=== PATIENT | male | born 1960 | race Caucasian/White ===

== ENCOUNTER 2018-07-23 15:26 | Emergency (ER) | payer OTHER ==
[~2018-07-23] VITALS: Ht 167.6 cm; Wt 66.6 kg
[2018-07-23 15:35] VITALS: Ht 167.6 cm; Wt 66.6 kg
[2018-07-23] MEDS ORDERED: SOD CHLORIDE 0.9% 1,000 ML IV STA (16:51)
--- NOTE | 2018-07-23 16:58 | ERD ---
ER Documentation Chief Complaint Chief Complaint dx: UTi @ clinic, given bactrim rocephin today, still have pain & burning HPI This is a 58-year-old man 2 days of dysuria and suprapubic discomfort here for continued pain. Just this morning he was diagnosed with a urinary tract infection and given a shot of Toradol and ceftriaxone 1 g IM and discharged with prescription for Bactrim and ibuprofen, both of which she has not used yet. He states he came here because of continued pain, shortly after Toradol wore off he developed increasing suprapubic discomfort. Patient denies fevers, no hematuria, no back or flank pain, no vomiting. ROS All systems reviewed and are negative except as per history of present illness. Medications Home Meds Active Scripts Cephalexin* (Keflex*) 500 Mg Capsule, 500 MG PO QID for 5 Days, CAP Prov:JEFF NEGRON MD 07/23/18 Ibuprofen* (Motrin*) 600 Mg Tab, 600 MG PO Q8 PRN for PAIN AND/OR INFLAMMATION, #30 TAB Prov:JEFF NEGRON MD 07/23/18 Allergies Allergies: Coded Allergies: No Known Allergy (Unverified , 07/23/18) PMhx/Soc Medical and Surgical Hx: pt denies Medical Hx, pt denies Surgical Hx Hx Alcohol Use: No Hx Substance Use: No Hx Tobacco Use: No Smoking Status: Never smoker FmHx Family History: No diabetes Physical Exam Vitals Vital Signs Date Temp Pulse Resp B/P (MAP) Pulse Ox O2 O2 Flow FiO2 Time Delivery Rate 07/23/18 76 20 138/71 98 Room Air 18:40 (93) 07/23/18 99.2 99 18 125/91 99 15:35 (102) Physical Exam Const: Well-developed well-nourished man, mild discomfort, afebrile Resp: Clear to auscultation bilaterally Cardio: Regular rate and rhythm, no murmurs Abd: Soft, non tender, non distended. Suprapubic distention and tenderness to touch, no masses no rigidity or rebound Skin: No petechiae or rashes Back: No midline or flank tenderness Ext: No cyanosis, or edema Neur: Awake and alert x3, no focal deficits or facial asymmetry, pupils equal round reactive to light, gait normal Psych: Normal Mood and Affect Result Diagram: 07/23/18 1657 07/23/18 1657 Results 24 hrs Laboratory Tests Test 07/23/18 16:57 White Blood Count 10.1 10^3/ul Red Blood Count 4.97 10^6/ul Hemoglobin 15.5 g/dl Hematocrit 44.4 % Mean Corpuscular Volume 89.3 fl Mean Corpuscular Hemoglobin 31.2 pg Mean Corpuscular Hemoglobin Concent 34.9 g/dl Red Cell Distribution Width 12.2 % Platelet Count 297 10^3/UL Mean Platelet Volume 9.7 fl Immature Granulocytes % 0.400 % Neutrophils % 86.5 % Lymphocytes % 6.8 % Monocytes % 5.7 % Eosinophils % 0.1 % Basophils % 0.5 % Nucleated Red Blood Cells % 0.0 /100WBC Immature Granulocytes # 0.040 10^3/ul Neutrophils # 8.8 10^3/ul Lymphocytes # 0.7 10^3/ul Monocytes # 0.6 10^3/ul Eosinophils # 0.0 10^3/ul Basophils # 0.1 10^3/ul Nucleated Red Blood Cells # 0.0 10^3/ul Sodium Level 135 mmol/L Potassium Level 4.5 mmol/L Chloride Level 102 mmol/L Carbon Dioxide Level 23 mmol/L Anion Gap 10 Blood Urea Nitrogen 14 mg/dl Creatinine 0.80 mg/dl Est Glomerular Filtrat Rate mL/min > 60 mL/min Glucose Level 114 mg/dl Calcium Level 9.3 mg/dl Current Medications Medications Dose Sig/Siomara Start Time Status Last (Trade) Ordered Route PRN Stop Time Admin Dose Reason Admin Sodium 1,000 ml @ Q1H STAT 07/23/18 DC 07/23/18 Chloride 1,000 mls/hr IV 16:51 17:23 07/23/18 17:50 Cephalexin 500 mg ONCE ONCE 07/23/18 DC 07/23/18 (Keflex) PO 17:00 17:22 07/23/18 17:01 Ibuprofen 600 mg ONCE ONCE 07/23/18 DC 07/23/18 (Motrin) PO 17:00 17:22 07/23/18 17:01 Oxycodone/ 1 tab ONCE ONCE 07/23/18 DC 07/23/18 Acetaminophen PO 17:00 17:21 (Percocet 07/23/18 17:01 (5/ 325)) Procedures/MDM IV line was established patient was placed on alarm security or surveillance monitor rhythm strip revealed a sinus rhythm at about 80 bpm with upright P and T waves. Patient was afebrile Jaimes catheter was placed in about 1100 cc clear urine output obtained, patient felt immediately better and pain resolved. Suprapubic distention resolved completely and repeat abdominal exam was benign and soft. I administered 1 L normal saline IV, ibuprofen 600 mg p.o., Percocet 1 tablet p.o., and cephalexin 500 mg p.o. x1 CBC and electrolytes are normal Jaimes catheter was removed per patient's request. Differential diagnoses considered, included but not limited to acute coronary syndrome, pulmonary embolism, aortic dissection, abdominal aortic aneurysm, sepsis, stroke, meningitis, encephalitis, pneumonia, appendicitis, cholecystitis, bowel obstruction, pyelonephritis, nephrolithiasis, cystitis, as well as metabolic, hematologic, and electrolyte abnormalities. As well as abscess, cellulitis, fractures, and dislocations. Patient feels much better at this time, and vital signs are normal, symptoms have improved. I did give strict instructions to return to the ED if symptoms continue or worsen, patient will otherwise follow-up with primary care physician. Patient understood instructions and agreed to plan. Disclaimer: Inadvertent spelling and grammatical errors are likely due to EHR/dictation software use and do not reflect on the overall quality of patient care. Also, please note that the electronic time recorded on this note does not necessarily reflect the actual time of the patient encounter. Departure Diagnosis: Primary Impression: Acute UTI Additional Impression: Urinary retention Condition: Good JEFF NEGRON MD July 23, 2018 16:58
[2018-07-23] MEDS ORDERED: CEPHALEXIN 500 MG CAP PO ONE (17:00)
[2018-07-23] MEDS ORDERED: IBUPROFEN 600 MG TAB PO ONE (17:00)
[2018-07-23] MEDS ORDERED: OXYCODONE/ACETAMINOPHEN (5/325) TAB PO ONE (17:00)
[2018-07-23] MEDS ORDERED: IBUP-1542 PO (17:38)
[2018-07-23] MEDS ORDERED: CEPH-443 PO (17:38)
[2018-07-23 18:40] VITALS: BP 138/71; PULSE 76; RESP 20
== END 2018-07-23 18:45 | disposition home or self-care (01) ==
LOC: E/R 15:26
DX: N39.0 Urinary tract infection, site not specified (principal)
CPT/HCPCS: 36415; 51702; 80048; 85025; 87086; 99284; J7030

== ENCOUNTER 2018-07-24 10:29 | Emergency (ER) | payer OTHER ==
[~2018-07-24] VITALS: Wt 66.5 kg
[~2018-07-24 10:29] MED LIST: CEPH-443 PO; IBUP-1542 PO
[2018-07-24 10:36] VITALS: BP 156/92; PULSE 94; RESP 18
--- NOTE | 2018-07-24 13:25 | ERD ---
ER Documentation Chief Complaint Chief Complaint HERE YESTERDAY, THINKS HAS RETENTION AGAIN, ABLE TO URINATE HPI Patient is a 58-year-old male who presents for urinary retention. The patient was seen yesterday and diagnosed with a bladder infection and was given Keflex. He initially had a Jaimes placed yesterday and this was removed prior to him being discharged. However he feels like he is again retaining urine. He denies fevers. ROS All systems reviewed and are negative except as per history of present illness. Medications Home Meds Active Scripts Cephalexin* (Keflex*) 500 Mg Capsule, 500 MG PO QID for 5 Days, CAP Prov:JEFF NEGRON MD 07/23/18 Ibuprofen* (Motrin*) 600 Mg Tab, 600 MG PO Q8 PRN for PAIN AND/OR INFLAMMATION, #30 TAB Prov:JEFF NEGRON MD 07/23/18 Allergies Allergies: Coded Allergies: No Known Allergy (Unverified , 07/23/18) PMhx/Soc Hx Alcohol Use: No Hx Substance Use: No Hx Tobacco Use: No Smoking Status: Never smoker FmHx Family History: No diabetes Physical Exam Vitals Vital Signs Date Temp Pulse Resp B/P (MAP) Pulse Ox O2 O2 Flow FiO2 Time Delivery Rate 07/24/18 99.1 94 18 156/92 99 10:36 (113) Physical Exam Const: No acute distress Head: Atraumatic Eyes: Normal Conjunctiva ENT: Normal External Ears, Nose and Mouth. Neck: Full range of motion. No meningismus. Resp: Clear to auscultation bilaterally Cardio: Regular rate and rhythm, no murmurs Abd: Soft, bladder distention and pain over the bladder Skin: No petechiae or rashes Back: No midline or flank tenderness Ext: No cyanosis, or edema Neur: Awake and alert Psych: Normal Mood and Affect Procedures/MDM Jaimes catheter was placed by nursing. Patient is a 58-year-old male who presents with bladder infection and urinary retention. The patient had a Jaimes catheter placed at the bedside. The patient is currently on antibiotics. He will need to follow-up with urology and I gave him information for Dr. Farah. He can return for any worsening symptoms. He is otherwise well-appearing and I do not believe he requires further work-up or admission in the hospital at this time. Departure Diagnosis: Primary Impression: Retention of urine Condition: Fair Patient Instructions: Urinary Retention, Male Referrals: LAZARA FARAH MD Additional Instructions: Specialist:Usted tiene jasmyn condicin mdica que requiere que debra a un especialista dentro de los prximos 1-2 porter.POR FAVOR,CON LICEA SEGUIMIENTO DE PRIMARIA PHSICIAN refferal. SI USTED NO TIENE UN MDICO GENERAL Y / O USTED NO P UEDE PAGAR steve a un mdico,los siguientes olson RECURSOS sido suministrado a usted. ES LICEA RESPONSABILIDAD PARA SER VISTOS POR EL ESPECIALISTA: MARY MAO MD July 24, 2018 13:25
== END 2018-07-24 12:31 | disposition home or self-care (01) ==
LOC: E/R 10:29
DX: R33.9 Retention of urine, unspecified (principal)

== ENCOUNTER 2018-07-31 12:24 | Emergency (ER) | payer OTHER ==
[~2018-07-31] VITALS: Wt 64.3 kg
--- NOTE | 2018-07-31 13:19 | ERD ---
ER Documentation Chief Complaint Chief Complaint retaining urine: p removal Jaimes yesterday unable to void 'feels full' HPI History of Present Illness: 58-year-old male who denies a past medical history coming in today with complaint of urinary retention. Patient reports he had a Jaimes catheter that was in place for approximately 1 week removed yesterday due to prior episode of urinary retention. Patient reports that he has had episodes of urination in which he had a continuous stream of urine, but this morning he noticed that he had urinary dribbling occurred at approximately 8 AM. Patient reports seeing his PCP on yesterday and was given a referral for urologist. Patient is currently awaiting that urology referral, but is having complications with insurance and having to wait 48 hours for insurance to approve appointment. Patient reports that he has contacted another urologist and has an appointment tomorrow in which he reports he will likely not use his insurance unless it is approved. At home pharmacological/nonpharmacological treatment for symptoms: Denies Denies social concerns; Denies recent foreign travel ROS All systems reviewed and are negative except as per history of present illness. Medications Home Meds Active Scripts Tamsulosin Hcl* (Flomax*) 0.4 Mg Cap.er.24h, 0.4 MG PO HS for enlarged prostate for 30 Days, #30 CAP Prov:EFRAÍN HUNT NP 07/31/18 Cephalexin* (Keflex*) 500 Mg Capsule, 500 MG PO QID for 5 Days, CAP Prov:JEFF NEGRON MD 07/23/18 Ibuprofen* (Motrin*) 600 Mg Tab, 600 MG PO Q8 PRN for PAIN AND/OR INFLAMMATION, #30 TAB Prov:JEFF NEGRON MD 07/23/18 Allergies Allergies: Coded Allergies: No Known Allergy (Unverified , 07/23/18) PMhx/Soc Hx Alcohol Use: No Hx Substance Use: No Hx Tobacco Use: No Smoking Status: Never smoker FmHx Family History: No diabetes, No coronary disease Physical Exam Vitals Vital Signs Date Temp Pulse Resp B/P (MAP) Pulse Ox O2 O2 Flow FiO2 Time Delivery Rate 07/31/18 98.4 77 18 133/86 98 Room Air 16:38 (102) 07/31/18 98.1 83 22 142/86 99 12:44 (104) Physical Exam Const: No acute distress Head: Atraumatic Eyes: Normal Conjunctiva ENT: Normal External Ears, Nose and Mouth. Neck: Full range of motion. No meningismus. Resp: Clear to auscultation bilaterally Cardio: Regular rate and rhythm, no murmurs Abd: Soft, tenderness to suprapubic, mild distention noted. Normal bowel sounds Skin: No petechiae or rashes Back: No midline or flank tenderness Ext: No cyanosis, or edema Neur: Awake and alert Psych: Normal Mood and Affect Result Diagram: 07/31/18 1419 Results 24 hrs Laboratory Tests Test 07/31/18 12:40 07/31/18 14:19 Urine Color YELLOW Urine Clarity CLEAR Urine pH 5.0 Urine Specific [place] 1.016 Urine Ketones TRACE mg/dL Urine Nitrite NEGATIVE mg/dL Urine Bilirubin NEGATIVE mg/dL Urine Urobilinogen NEGATIVE mg/dL Urine Leukocyte Esterase NEGATIVE [place]/ul Urine Hemoglobin NEGATIVE mg/dL Urine Glucose NEGATIVE mg/dL Urine Total Protein NEGATIVE mg/dl Blood Urea Nitrogen 17 mg/dl Creatinine 0.72 mg/dl Current Medications Medications Dose Sig/Siomara Start Time Status Last (Trade) Ordered Route PRN Stop Time Admin Dose Reason Admin Lidocaine 5 ml ONCE ONCE 07/31/18 DC HCl MM 13:30 07/31/18 (Lidocaine 13:31 Urojet) Tamsulosin 0.4 mg ONCE ONCE 07/31/18 DC 07/31/18 HCl PO 16:00 07/31/18 16:11 (Flomax) 16:01 Procedures/MDM ED course includes a thorough examination and history. Medications: --- Imaging: --- Labs: Creatinine, BUN, urinalysis Low suspicion for life-threatening medical emergency. Low suspicion for acute abdominal emergency or genitourinary emergency that requires immediate hospitalization or immediate surgical intervention. Otherwise healthy patient presenting with constellation of symptoms likely representing urine retention possibly secondary to enlarged prostate as characterized by history, physical exam finding, lab findings. BUN and creatinine is within normal limits. Urinalysis without signs of infection. Patient reassessment 1545: Patient hemodynamically stable. 1200 mL of urine output to Jaimes catheter. No respiratory distress, otherwise relatively well appearing and nontoxic. Informed results of previous urine culture as well as urinalysis from today; no signs of infection. Change Macrobid administration to nightly for prophylaxis for infection prevention due to Jaimes catheter instead of twice daily that was given prophylactically for probable urinary tract infection; patient was given this prescription at his last visit to emergency department. Patient's and patient verbalizes understanding of medication dosing as well as discharge instructions as well as plan of care to follow-up with urology tomorrow. Will DC home with Jaimes catheter still in place, leg bag changed. Disposition given. Patient educated on diagnoses, prescriptions, follow-up care, return precautions. Strict return precautions given for worsening condition; questions answered discharge. Disposition for discharge with followup in 2 days with PCP/clinic. Departure Diagnosis: Primary Impression: Retention of urine Condition: Stable EFRAÍN HUNT NP Jul 31, 2018 13:19
[2018-07-31] MEDS ORDERED: LIDOCAINE 2% JEL.PF.APP 5 ML UROJET SYRINGE MM ONE (13:30)
[2018-07-31] MEDS ORDERED: TAMSULOSIN (SR) 0.4 MG CAP PO ONE (16:00)
[2018-07-31] MEDS ORDERED: TAMS-14 PO (16:03)
[2018-07-31 16:38] VITALS: BP 133/86; PULSE 77; RESP 18
== END 2018-07-31 16:42 | disposition home or self-care (01) ==
LOC: FTE 12:24
DX: R33.9 Retention of urine, unspecified (principal)
CPT/HCPCS: 81003; 82565; 84520

== ENCOUNTER 2018-08-03 05:56 | Emergency (ER) | payer OTHER ==
[~2018-08-03] VITALS: Ht 170.2 cm; Wt 65.4 kg
[~2018-08-03 05:56] MED LIST changes: +TAMS-14 PO
[2018-08-03 06:09] VITALS: BP 135/90; PULSE 85; RESP 20; Ht 170.2 cm; Wt 65.4 kg
--- NOTE | 2018-08-03 07:47 | ERD ---
ER Documentation Chief Complaint Chief Complaint urine retention x 2 days, f/c removed 2 days ago HPI 58-year-old male presents to the emergency department complaining of urinary retention. 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 He has had catheters placed 3 times. Most recently, the catheter was just removed a few days ago. At that time he was started on antibiotics and Flomax. He has been taking the antibiotics on the Flomax. He states that he continues to be able to urinate, but does not empty his bladder and now is having increasing suprapubic distention. He reports no fevers or chills. He reports significant discomfort over the bladder area. ROS All systems reviewed and are negative except as per history of present illness. Medications Home Meds Active Scripts Tamsulosin Hcl* (Flomax*) 0.4 Mg Cap.er.24h, 0.4 MG PO HS for enlarged prostate for 30 Days, #30 CAP Prov:EFRAÍN HUNT NP 07/31/18 Cephalexin* (Keflex*) 500 Mg Capsule, 500 MG PO QID for 5 Days, CAP Prov:JEFF NEGRON MD 07/23/18 Ibuprofen* (Motrin*) 600 Mg Tab, 600 MG PO Q8 PRN for PAIN AND/OR INFLAMMATION, #30 TAB Prov:JEFF NEGRON MD 07/23/18 Allergies Allergies: Coded Allergies: No Known Allergy (Unverified , 07/23/18) PMhx/Soc History of Surgery: No Anesthesia Reaction: No Hx Neurological Disorder: No Hx Respiratory Disorders: No Hx Cardiac Disorders: No Hx Psychiatric Problems: No Hx Miscellaneous Medical Probl: Yes (BPH-urine retention) Hx Alcohol Use: No Hx Substance Use: No Hx Tobacco Use: No Smoking Status: Never smoker FmHx Noncontributory for chief complaint Physical Exam Vitals Vital Signs Date Temp Pulse Resp B/P (MAP) Pulse Ox O2 O2 Flow FiO2 Time Delivery Rate 08/03/18 98.0 85 20 135/90 98 06:09 (105) Physical Exam GENERAL: The patient is well developed and appropriate for usual state of health in no apparent distress HEENT: Pupils equal, round, and reactive to light. EOMI. There is no scleral icterus. NECK: C-spine is soft and supple, there is no meningismus. There is no cervical lymphadenopathy. LUNGS: Clear to auscultation bilaterally. There are no rales, wheezes or rhonchi. HEART: Regular rate and rhythm, no murmurs, clicks, rubs or gallops. ABDOMEN: Soft, nontender. There is suprapubic distention. Palpable bladder over the pelvic brim. No CVA tenderness. No rebound or guarding. EXTREMITIES: There is no peripheral cyanosis or edema. No focal swelling or erythema. NEURO: The patient moves all four extremities with 5/5 strength. Cranial nerves II - XII are intact. Normal gait. Alert and oriented SKIN: There is no apparent rash or petechiae. HEME/LYMPHATIC: There is no evidence of excessive bruising or lymphedema. PSYCHIATRIC: The patient does not appear anxious or depressed. Procedures/MDM Patient was taken to a room, seen and examined Jaimes catheter was placed and drained approximately a liter of urine Medical decision makin-year-old male presents with recurrent urinary retention. Patient is already being treated for urinary tract infection and has no evidence of renal insufficiency or other high-risk concerns. Patient has good outpatient follow-up. Patient has no evidence of significant hemorrhage. Patient appears to be clinically well and appropriate for discharge. Departure Diagnosis: Primary Impression: Retention of urine Condition: Stable Patient Instructions: Urinary Retention, Male Referrals: LAZARA FARAH MD Additional Instructions: Keep the catheter in place until you are seen by the specialist. Return for any problems or concerns SAMPSON MAN Aug 03, 2018 07:47
== END 2018-08-03 08:03 | disposition home or self-care (01) ==
LOC: E/R 05:56
DX: R33.9 Retention of urine, unspecified (principal)

== ENCOUNTER 2018-08-24 21:27 | Emergency (ER) | payer OTHER ==
[~2018-08-24] VITALS: Ht 172.7 cm; Wt 65.1 kg
[2018-08-24 21:34] VITALS: Ht 172.7 cm; Wt 65.1 kg
--- NOTE | 2018-08-24 23:29 | ERD ---
ER Documentation Chief Complaint Chief Complaint pt reports unable to urinate since last night HPI Is a 58-year-old male who presents for evaluation of urinary retention. He has a history of BPH, he was seen by his primary care doctor yesterday, and had his Jaimes catheter removed, he had been urinating well initially, however now his urinary retention return, and request Jaimes catheter placement he denies fever, denies nausea or vomiting. He has not had any abdominal pain. ROS All systems reviewed and are negative except as per history of present illness. Medications Home Meds Active Scripts Tamsulosin Hcl* (Flomax*) 0.4 Mg Cap.er.24h, 0.4 MG PO HS for enlarged prostate for 30 Days, #30 CAP Prov:EFRAÍN HUNT NP 07/31/18 Cephalexin* (Keflex*) 500 Mg Capsule, 500 MG PO QID for 5 Days, CAP Prov:JEFF NEGRON MD 07/23/18 Ibuprofen* (Motrin*) 600 Mg Tab, 600 MG PO Q8 PRN for PAIN AND/OR INFLAMMATION, #30 TAB Prov:JEFF NEGRON MD 07/23/18 Allergies Allergies: Coded Allergies: No Known Allergy (Unverified , 07/23/18) PMhx/Soc History of Surgery: No Anesthesia Reaction: No Hx Neurological Disorder: No Hx Respiratory Disorders: No Hx Cardiac Disorders: No Hx Psychiatric Problems: No Hx Miscellaneous Medical Probl: Yes (BPH-urine retention) Hx Alcohol Use: No Hx Substance Use: No Hx Tobacco Use: No FmHx Family History: No diabetes Physical Exam Vitals Vital Signs Date Temp Pulse Resp B/P (MAP) Pulse Ox O2 O2 Flow FiO2 Time Delivery Rate 08/25/18 98.1 75 16 130/85 97 00:10 (100) 08/24/18 98.1 98 16 148/87 97 21:34 (107) Physical Exam Const: Afebrile, nontoxic Head: Atraumatic Eyes: Normal conjunctiva ENT: Normal external ears, nose and mouth. Neck: Resp: Normal respiratory effort Cardio: Abd: Soft, tenderness over the suprapubic area, no rebound or guarding, no McBurney's point tenderness Skin: Back: Ext: Neur: Awake and alert Psych: Normal mood and affect Procedures/MDM 58-year-old male presents for evaluation of urinary retention. Jaimes catheter placed in ED, patient without further symptoms, well-appearing nontoxic. Patient is currently on Keflex, no fever no evidence of infection, states had urinalysis yesterday, declined urinary studies today, at discharge the patient was in no distress. Departure Diagnosis: Primary Impression: Retention of urine Condition: Stable JEFF PENA MD Aug 24, 2018 23:29
[2018-08-25 00:10] VITALS: RESP 16
[2018-08-25 01:31] VITALS: BP 128/89; PULSE 79
== END 2018-08-25 01:30 | disposition home or self-care (01) ==
LOC: E/R 21:27
DX: R33.9 Retention of urine, unspecified (principal)

== ENCOUNTER 2018-09-26 16:32 | Emergency (ER) | payer OTHER ==
[~2018-09-26] VITALS: Ht 172.7 cm; Wt 63.8 kg
[~2018-09-26 16:32] MED LIST changes: +CIPR500T4 PO
[2018-09-26 17:18] VITALS: Ht 172.7 cm; Wt 63.8 kg
--- NOTE | 2018-09-26 20:53 | ERD ---
ER Documentation Chief Complaint Chief Complaint pt c/o urinary retention, rogers was removed this am, c/o lower ab pain HPI 58-year-old male with a history of BPH complaining of urinary retention since early this morning. He was at his urologist office where his catheter that he has had for 1 month was removed. He has not been able to urinate since. He is complaining of severe suprapubic pain but is aching. He has the urge to urinate. No fevers or chills. No nausea or vomiting. ROS All systems reviewed and are negative except as per history of present illness. Medications Home Meds Active Scripts Ciprofloxacin Hcl* (Ciprofloxacin Hcl*) 500 Mg Tablet, 500 MG PO BID for 7 Days, TAB Prov:REAL GARCIA MD 09/26/18 Tamsulosin Hcl* (Flomax*) 0.4 Mg Cap.er.24h, 0.4 MG PO HS for enlarged prostate for 30 Days, #30 CAP Prov:EFRAÍN HUNT NP 07/31/18 Cephalexin* (Keflex*) 500 Mg Capsule, 500 MG PO QID for 5 Days, CAP Prov:JEFF NEGRON MD 07/23/18 Ibuprofen* (Motrin*) 600 Mg Tab, 600 MG PO Q8 PRN for PAIN AND/OR INFLAMMATION, #30 TAB Prov:JEFF NEGRON MD 07/23/18 Allergies Allergies: Coded Allergies: No Known Allergy (Unverified , 07/23/18) PMhx/Soc History of Surgery: No Anesthesia Reaction: No Hx Neurological Disorder: No Hx Respiratory Disorders: No Hx Cardiac Disorders: No Hx Psychiatric Problems: No Hx Miscellaneous Medical Probl: Yes (BPH, urine retention) Hx Alcohol Use: No Hx Substance Use: No Hx Tobacco Use: No Smoking Status: Never smoker FmHx Family History: No diabetes Physical Exam Vitals Vital Signs Date Temp Pulse Resp B/P (MAP) Pulse Ox O2 O2 Flow FiO2 Time Delivery Rate 09/26/18 99.0 87 20 128/87 98 17:18 (101) Physical Exam Const: No acute distress Head: Atraumatic Eyes: Normal Conjunctiva ENT: Normal External Ears, Nose and Mouth. Neck: Full range of motion. No meningismus. Resp: Clear to auscultation bilaterally Cardio: Regular rate and rhythm, no murmurs Abd: Suprapubic distention with tenderness to palpation. No peritoneal signs. Skin: No petechiae or rashes Back: No midline or flank tenderness Ext: No cyanosis, or edema Neur: Awake and alert Psych: Normal Mood and Affect Results 24 hrs Laboratory Tests Test 09/26/18 20:40 Bedside Urine pH (LAB) 5.5 Bedside Urine Protein (LAB) Trace Bedside Urine Glucose (UA) Negative Bedside Urine Ketones (LAB) 1+ Bedside Urine Blood 2+ Bedside Urine Nitrite (LAB) Positive Bedside Urine Leukocyte Esterase (L 1+ Procedures/MDM Patient is presenting with urinary retention. Rogers catheter was placed with immediate improvement of his symptoms. Urine dip did show evidence of infection. No evidence of sepsis. Recommended oral antibiotics for treatment of catheter associated UTI. Cipro prescription given. Follow-up with his urologist recommended within the next few days. Patient is agreeable with this plan. Patient's blood pressure was elevated (>120/80) but appears stable without evidence of hypertension emergency or urgency. The patient was counseled about the risks of hypertension and urged to pursue outpatient monitoring and therapy within a week with their primary care physician. Departure Diagnosis: Primary Impression: Retention of urine Additional Impression: Catheter-associated urinary tract infection Indwelling urinary catheter type: indwelling urethral catheter Encounter type: initial encounter Qualified Codes: T83.511A - Infection and inflammatory reaction due to indwelling urethral catheter, initial encounter; N39.0 - Urinary tract infection, site not specified Condition: Stable Patient Instructions: Cystitis, Rogers Catheter, Care, Urinary Retention, Male Referrals: RENAN SCRUGGS Additional Instructions: Rey jasmyn adrien con hernadez urologo en 1 -2 [place] REAL GARCIA MD Sep 26, 2018 20:53
[2018-09-26 21:32] VITALS: BP 131/84; PULSE 64; RESP 20
== END 2018-09-26 21:34 | disposition home or self-care (01) ==
LOC: FTE 16:32
DX: R33.9 Retention of urine, unspecified (principal); T83.511A Infection and inflammatory reaction due to indwelling urethral catheter, initial encounter; Y73.2 Prosthetic and other implants, materials and accessory gastroenterology and urology devices associated with adverse incidents
CPT/HCPCS: 81001; 81003; 87086